=== PATIENT | male | born 1975 ===

== ENCOUNTER 2017-11-26 09:01 | Outpatient (CLI) | payer OTHER | END 2017-11-26 09:11 | disposition home or self-care (01) | LOC: LAB 09:01 | DX: K57.20 Diverticulitis of large intestine with perforation and abscess without bleeding (principal); R19.4 Change in bowel habit; R10.32 Left lower quadrant pain ==

== ENCOUNTER 2017-11-27 10:52 | Outpatient (CLI) | payer OTHER | END 2017-11-27 11:01 | disposition home or self-care (01) | LOC: NUCLEAR 10:52 | DX: K57.20 Diverticulitis of large intestine with perforation and abscess without bleeding (principal); R19.4 Change in bowel habit; R10.32 Left lower quadrant pain; I87.2 Venous insufficiency (chronic) (peripheral); I82.492 Acute embolism and thrombosis of other specified deep vein of left lower extremity ==

== ENCOUNTER 2017-12-12 11:15 | Inpatient (IN) | payer OTHER ==
[~2017-12-12] VITALS: Ht 165.1 cm; Wt 81.6 kg
[2018-01-09] MEDS ORDERED: OXYC1TAB9 PO (10:45)
[2018-01-09] MEDS ORDERED: BACTRIM DS TAB1 EACH PO (10:46)
== END 2018-01-09 12:33 | disposition home or self-care (01) | DRG 329 ==
LOC: SURH 12-19 11:15 → O/R 12-26 07:40 → SURH 12-26 07:40
PROVIDERS: Surgery; Urology
PROC: 0DJD8ZZ Inspection of Lower Intestinal Tract, Via Natural or Artificial Opening Endoscopic (ICD-10-PCS; 2017-12-26)
PROC: 0DTN4ZZ Resection of Sigmoid Colon, Percutaneous Endoscopic Approach (ICD-10-PCS; principal; 2017-12-26 05:00)
PROC: 0DTP4ZZ Resection of Rectum, Percutaneous Endoscopic Approach (ICD-10-PCS; 2017-12-26 05:00)
PROC: BW24ZZZ Computerized Tomography (CT Scan) of Chest and Abdomen (ICD-10-PCS; 2018-01-01)
PROC: B54MZZZ Ultrasonography of Right Upper Extremity Veins (ICD-10-PCS; 2018-01-01)
PROC: 0W9G30Z Drainage of Peritoneal Cavity with Drainage Device, Percutaneous Approach (ICD-10-PCS; 2018-01-02)
PROC: BW21ZZZ Computerized Tomography (CT Scan) of Abdomen and Pelvis (ICD-10-PCS; 2018-01-07)
DX: K57.20 Diverticulitis of large intestine with perforation and abscess without bleeding (principal); K68.12 Psoas muscle abscess; A41.9 Sepsis, unspecified organism; D62 Acute posthemorrhagic anemia; J98.11 Atelectasis; K91.840 Postprocedural hemorrhage of a digestive system organ or structure following a digestive system procedure; K91.870 Postprocedural hematoma of a digestive system organ or structure following a digestive system procedure; R50.82 Postprocedural fever; G89.18 Other acute postprocedural pain; I10 Essential (primary) hypertension

== ENCOUNTER 2017-12-17 08:03 | Day surgery (SDC) | payer OTHER | END 2017-12-17 12:57 | disposition home or self-care (01) | LOC: AMB-ENDOS 08:03 | DX: K57.20 Diverticulitis of large intestine with perforation and abscess without bleeding (principal) ==

== ENCOUNTER 2020-10-13 10:04 | Outpatient (CLI) | payer OTHER ==
[~2020-10-13 10:04] MED LIST: BACTRIM DS TAB1 EACH PO; OXYC1TAB9 PO
== END 2020-10-13 10:06 | disposition home or self-care (01) ==
LOC: LAB 10:04
PROVIDERS: ATTEND General Practice
DX: M25.561 Pain in right knee (principal); Z11.3 Encounter for screening for infections with a predominantly sexual mode of transmission; Z11.4 Encounter for screening for human immunodeficiency virus [HIV]; Z12.11 Encounter for screening for malignant neoplasm of colon; Z12.5 Encounter for screening for malignant neoplasm of prostate; Z13.0 Encounter for screening for diseases of the blood and blood-forming organs and certain disorders involving the immune mechanism; Z13.29 Encounter for screening for other suspected endocrine disorder

== ENCOUNTER 2020-10-13 12:47 | Outpatient (CLI) | payer OTHER | END 2020-10-13 12:58 | disposition home or self-care (01) | LOC: MRI 12:47 | PROVIDERS: ATTEND General Practice | DX: M25.561 Pain in right knee (principal); Z11.3 Encounter for screening for infections with a predominantly sexual mode of transmission; Z11.4 Encounter for screening for human immunodeficiency virus [HIV]; Z12.11 Encounter for screening for malignant neoplasm of colon; Z12.5 Encounter for screening for malignant neoplasm of prostate; Z13.1 Encounter for screening for diabetes mellitus; Z13.228 Encounter for screening for other metabolic disorders | CPT/HCPCS: 73721 ==

== ENCOUNTER 2021-02-15 15:10 | Outpatient (CLI) | payer OTHER | END 2021-02-15 15:30 | disposition home or self-care (01) | LOC: PPH VACUNA 15:10 | PROVIDERS: ATTEND Emergency Medicine Pediatric Emergency Medicine | DX: Z23 Encounter for immunization (principal) ==

== ENCOUNTER → 2024-10-20 10:26 | Outpatient (CLI) | payer OTHER ==
[2024-10-20 11:24] LABS: BASO % 0.7 % (0.1-1.2); EOS # 0.23 (0.04-0.54); EOS % 1.7 % (0.7-7.0); LYMPH # 2.73 (1.18-3.74); LYMPH % 20.5 % (19.3-53.1); MEAN PLATELET VOLUME 9.90 fl (9.4-12.4); MONO # 0.76 (0.24-0.82); MONO % 5.7 % (4.7-12.5); NEUT # 9.49 (1.56-6.13); NEUT % 71.2 % (34.0-71.1); RED CELL DISTRIBUTION WIDTH 12.8 % (11.6-14.4)
[2024-10-20 11:29] LABS: URINE APPEARANCE Clear; URINE BILIRRUBIN Negative (NEGATIVE); URINE BLOOD Negative; URINE COLOR Yellow; URINE GLUCOSE Negative (NEGATIVE); URINE KETONE Trace (NEGATIVE); URINE LEUKOCYTE Small; URINE NITRATE Negative; URINE PROTEIN Trace (NEGATIVE); URINE UROBILINOGEN 0.2 E.U./dl
[2024-10-20 11:33] LABS: URINE BACTERIA 491.9 uL (0.0-1933); URINE EPITHELIAL CELLS 9.0 uL (0.0-38.8); URINE RBC 4.5 uL (0.0-20.8); URINE WBC 196.2 uL (0.0-23.2)
[2024-10-20 11:37] LABS: URINE CAST 0.87 uL (0.0-1.40)
[2024-10-20 12:20] LABS: ALT/SGPT 20.0 U/L (12-78); AST/SGOT 12.0 U/L (15-37); BILIRUBIN TOTAL 0.83 mg/dL (0.3-1.2); BUN CREA RATIO 9.0 (7.0-25.0); CHOL HDL RATIO 4.4 (0-5.0); CREATININE SERUM 1.04 mg/dL (0.70-1.30); GFR 75.9; GLOBULINA 2.8 G/DL (2.4-3.5); GLUCOSE FASTING 111.0 mg/dL (65-100); HDL 43.0 mg/dl (40-60); LDL 120.0 mg/dl (0-130); OSMOLALITY SERUM 284.0 MOSM/KG (275-295); PROSTATIC SPECIFIC ANTIGEN 2.8 NG/ML (0.010-4.00); TSH 0.602 uIU/mL (0.358-3.74); VLDL 26.0 (0-39)
== END | disposition home or self-care (01) ==
LOC: LAB 10:26
DX: M25.512 Pain in left shoulder (principal); Z13.29 Encounter for screening for other suspected endocrine disorder; E78.5 Hyperlipidemia, unspecified; R73.03 Prediabetes; Z12.5 Encounter for screening for malignant neoplasm of prostate; Z12.11 Encounter for screening for malignant neoplasm of colon

== ENCOUNTER 2024-10-20 11:29 | Outpatient (CLI) | payer OTHER | END 2024-10-20 11:46 | disposition home or self-care (01) | LOC: MRI 11:29 | PROVIDERS: ATTEND Specialist | DX: M25.512 Pain in left shoulder (principal) | CPT/HCPCS: 73721 ==

== ENCOUNTER 2024-10-23 15:13 | Outpatient (CLI) | payer OTHER ==
[2024-10-23 15:52] LABS: ob NEGATIVE (NEGATIVE)
== END 2024-10-23 15:38 | disposition home or self-care (01) ==
LOC: LAB 15:13
PROVIDERS: ATTEND Specialist
DX: M25.512 Pain in left shoulder (principal); Z13.29 Encounter for screening for other suspected endocrine disorder; E78.5 Hyperlipidemia, unspecified; R73.03 Prediabetes; Z12.5 Encounter for screening for malignant neoplasm of prostate; Z12.11 Encounter for screening for malignant neoplasm of colon

== ENCOUNTER → 2024-10-27 | Outpatient (CLI) | payer OTHER | END | disposition home or self-care (01) | LOC: RAD 10:58 | PROVIDERS: ATTEND Specialist | DX: M25.512 Pain in left shoulder (principal); Z13.29 Encounter for screening for other suspected endocrine disorder; E78.5 Hyperlipidemia, unspecified; R73.03 Prediabetes; Z12.5 Encounter for screening for malignant neoplasm of prostate; Z12.11 Encounter for screening for malignant neoplasm of colon; F17.200 Nicotine dependence, unspecified, uncomplicated ==